=== PATIENT | female | born 1965 | race Caucasian/White ===

== ENCOUNTER 2023-09-27 12:32 | Outpatient (CLI) | payer OTHER, SELFPAY ==
[2023-09-27 14:49] LABS: Free T4 Free Thyroxine 1.63 ng/mL (0.78-2.19)
== END 2023-09-27 12:33 | disposition home or self-care (01) ==
LOC: ANHLAB 12:40
PROVIDERS: PCP Emergency Medicine; Visit Provider Internal Medicine
DX: R00.2 Palpitations (principal)
CPT/HCPCS: 36415; 84439